=== PATIENT | female | born 1945 | race Caucasian/White ===

== ENCOUNTER 2016-06-17 04:48 | Inpatient (IN) | payer MEDICARE ==
[~2016-06-17] VITALS: Ht 157.4 cm; Wt 86.2 kg
--- NOTE | ~2016-06-17 | CON ---
[place], [place] REPORT OF CONSULTATION NAME: NAOMI WOODALL UNIT #: [id number] ROOM: 530 DOCTOR: TARIQ STRONG ED.D (SKYLER) BIRTHDATE: [birth year] DOS: 06/18/2016 HISTORY OF PRESENT ILLNESS: Naomi Woodall is a 71-year-old female referred by the hospitalist for psychological evaluation due to her confusion. At the present time, this patient is on the fifth floor at [facility]. She has three daughters and is presently a resident at [facility] in [place], [place]. Dr. Rosa is her family physician and her medical history is pertinent for CVA, dehydration, urinary tract infection, and bipolar 1 disorder. Her medications include aspirin, atorvastatin, vitamin D3, Klonopin, Depakote, Aricept, Xalatan, Tradjenta, losartan, Mobic, and Seroquel. She has no substance abuse issues at this time. This patient was awake, alert, and oriented in all three spheres. She denies any suicidal ideation or plan. She does have a long history of mental health treatment and followed for many years at the [facility] where her outsole caser was Jesenia Candelaria. She has been a resident at [facility] for quite some time. In my opinion, this patient is competent to make informed healthcare decisions and was irritated due to the fact that she had a urinary tract infection. She does have problems with several staff members at [facility] and I did notify the outsole caser at [facility] and they will evaluate that situation once she is returning. In my opinion, this patient may return to [facility] once she is medically stable and it appears that the assisted will accept her back as a resident. DIAGNOSES: 1. Bipolar 1 - mixed. 2. Delirium, not otherwise specified. Thank you very much for this consult. TARIQ STRONG ED.D CM:CONSTR:REPORT OF CONSULTATION 1623 06/19/16 0511 interface
--- NOTE | ~2016-06-17 | PR ---
[place], [place] PROGRESS NOTE NAME: RANDI WOODALL UNIT #: [id number] ROOM: 530 DOCTOR: TAE REILLY,TARIQ COOPER) BIRTHDATE: [birth year] DOS: At the present time, this patient continues to have symptoms of bipolar disorder and quite obviously needs her medications readjusted. [facility] and her behavior has been very erratic. She has been quite explosive and agitated. I suggest she get on to the Behavioral Health Unit and spoke with Dr. Agarwal and the hospitalist and she is to be transferred either today or tomorrow once she is medically stable. TARIQ STRONG ED.D CM:KIRILL [id number] TARIQ STRONG ED (BOB).D 06/20/16 0124 interface
[2016-06-17 04:48] VITALS: BP 145/84
[~2016-06-17 04:48] MED LIST: ALBUTEROL2.5 MG/0.5 INH; AMOXIL500 MG PO; ARICEPT5 M1 PO; ASPIRIN ADULT L81 M1 PO; ASPIRIN ADULT L81 M2 PO; ASPIRIN ADULT L81 MG PO; ASPIRIN CHEWABL81 M1 PO; AUGMENTIN 875875 MG PO; Anafranil25 MG PO; BACTRIM DS 8001 TA1 PO; BENZTROPINE2 MG PO; CELEBREX200 MG PO; CIPRO250 MG PO; CIPRO500 MG PO; CIPROFLOXACIN750 MG PO; CITALOPRAM20 MG PO; CLARITIN-D 5 MG1 T12 PO; CLOBETASOL0.05% T; CLOMIPRAMINE HC50 MG PO; CLONAZEPAM0.5 MG PO; CLONAZEPAM1 MG PO; COLON HERBAL C1 EACH PO; DEPAKOTE DR500 MG PO; DIFLUCAN100 MG PO; DIFLUCAN150 MG PO; DIFLUCAN200 MG PO; DIVALPROEX SOD250 MG PO; DONNATAL1 TAB PO; Depakote250 MG PO; KETOPROFEN75 MG PO; KLONOPIN0.5 MG PO; KLONOPIN1 MG PO; LAMICTAL100 MG PO; LATANOPROST2.5 ML OP; LEVAQUIN750 M1 PO; LEVOFLOXACIN500 MG PO; LOPRESSOR50 MG PO; MEDROL DOSEPAK4 MG PO; NAPROXEN SODIU220 M1 PO; NIACIN ER500 MG PO; NYSTATIN CREAM15 GM T; ONE DAILY WOME1 EACH PO; PRAVACHOL40 MG PO; RISPERDAL2 MG PO; RISPERIDONE1 MG PO; ROBITUSSIN AC 110 ML PO; SIMVASTATIN40 MG PO; STOOL SOFTENER100 M1 PO; TERBINAFINE250 MG PO; TRAMADOL HCL50 MG PO; TRAZADONE HYDR100 MG PO; TRAZODONE150 MG PO; TYLENOL EXTRA500 MG PO; VITAMIN D33000 UNIT PO; VITAMIN D400 IU PO; VITAMIN D50000 I3 PO; XALATAN 0.005%2.5 ML OU; XANAX0.5 MG PO; ZOCOR40 MG PO
[2016-06-17 05:13] LABS: BASO # 0.1 10*3/uL (0.0-0.1); BASO % 0.6 % (0.0-1.0); EOS # 0.5 10*3/uL (0.0-0.4); EOS % 5.1 % (1.0-4.0); HEMATOCRIT 40.4 % (37.0-47.0); HEMOGLOBIN 13.3 g/dl (12.0-16.0); IG # 0.2 10*3/uL (0.0-0.1); LYMPH # 2.6 10*3/uL (1.3-4.4); LYMPH % 29.4 % (27.0-41.0); MEAN CELL VOLUME 97.1 fl (81.0-99.0); MEAN CORPUSCULAR HGB CONC 32.9 g/dl (33.0-37.0); MEAN PLATELET VOLUME 9.7 fl (9.6-12.3); MONO # 1.1 10*3/uL (0.1-1.0); MONO % 12.2 % (3.0-9.0); NEUT # 4.5 10*3/uL (2.3-7.9); NEUT % 50.7 % (47.0-73.0); PLATELET COUNT AUTOMATED 263 10*3/uL (130-400); RED BLOOD COUNT 4.16 10*6/uL (4.10-5.10); RED CELL DISTRI WIDTH 13.4 % (0-14.5); WHITE BLOOD COUNT 8.9 10*3/uL (4.8-10.8)
[2016-06-17 05:23] LABS: PROTHROMBIN TIME 10.4 SECONDS (9.0-12.4)
[2016-06-17 05:23] LABS: BILIRUBIN NEGATIVE (NEGATIVE); BLOOD 2+ (NEGATIVE); CLARITY SL CLOUDY (CLEAR); COLOR YELLOW (YELLOW); GLUCOSE NEGATIVE (NEGATIVE); KETONE TRACE (NEGATIVE); LEUKO ESTERASE 3+ (NEGATIVE); NITRITE POSITIVE (NEGATIVE); PROTEIN NEGATIVE (NEGATIVE); SPECIFIC GRAVITY 1.025 (1.005-1.030); UROBILINOGEN 0.2 E.U./dl (0.2-1.0)
[2016-06-17 05:28] LABS: ALBUMIN 3.3 gm/dl (3.1-4.5); BILIRUBIN, TOTAL 0.2 mg/dl (0.2-1.0); POTASSIUM 4.7 mmol/L (3.5-5.1); TOTAL PROTEIN 7.2 gm/dL (6.4-8.2)
[2016-06-17 05:28] LABS: EPITHELIAL CELLS 25-30
[2016-06-17 05:29] LABS: BACTERIA 2+; RBC 31-40 rbc/hpf (0-2); URINE REFLEX COMMENT YES (NO); WBC 41-50 wbc/hpf (0-5)
[2016-06-17 05:31] LABS: C-REACTIVE PROTEIN 0.72 MG/DL (0-0.3); CKMB 1.5 ng/ml (0.5-3.6); MAGNESIUM 1.6 mg/dL (1.5-2.1)
[2016-06-17] MEDS ORDERED: ARICEPT10 M1 PO (05:37)
[2016-06-17] MEDS ORDERED: ATORVASTATIN CA20 M1 PO (05:39)
[2016-06-17] MEDS ORDERED: BISACODYL5 MG PO (05:40)
[2016-06-17] MEDS ORDERED: DIVALPROEX SOD500 MG PO (05:44)
[2016-06-17] MEDS ORDERED: FISH OIL EC 1,1 EAC2 PO (05:46)
[2016-06-17] MEDS ORDERED: LOSARTAN POTASS25 M1 PO (05:50)
[2016-06-17] MEDS ORDERED: MILK OF MA400 MG/5 M PO (05:51)
[2016-06-17] MEDS ORDERED: MELATONIN5 M1 SL (05:51)
[2016-06-17] MEDS ORDERED: MOBIC15 MG PO (05:52)
[2016-06-17] MEDS ORDERED: SEROQUEL XR200 MG PO (05:52)
[2016-06-17] MEDS ORDERED: TRAD5TAB1 PO (05:53)
[2016-06-17 07:10] LABS: LA>2 REFLEX 2 HR DRAW NOW
[2016-06-17 08:00] VITALS: BP 138/64
[2016-06-17] MEDS ORDERED: CRANBERRY300 MG PO (08:00)
[2016-06-17] MEDS ORDERED: DEPAKOTE250 MG PO (08:03)
[2016-06-17] MEDS ORDERED: DULCOLAX10 M1 RC (08:04)
[2016-06-17] MEDS ORDERED: MELATONIN5 M6 PO (08:09)
[2016-06-17 12:00] VITALS: BP 130/72
[2016-06-17 16:00] VITALS: BP 147/50
[2016-06-17 20:00] VITALS: BP 149/65
[2016-06-18] VITALS: BP 106/52
[2016-06-18 07:06] LABS: BASO % 0.6 % (0.0-1.0); EOS # 0.4 10*3/uL (0.0-0.4); EOS % 5.7 % (1.0-4.0); HEMATOCRIT 36.2 % (37.0-47.0); HEMOGLOBIN 11.5 g/dl (12.0-16.0); IG # 0.2 10*3/uL (0.0-0.1); LYMPH # 2.8 10*3/uL (1.3-4.4); LYMPH % 42.7 % (27.0-41.0); MEAN CELL VOLUME 98.6 fl (81.0-99.0); MEAN CORPUSCULAR HGB 31.3 pg (27.0-31.0); MEAN CORPUSCULAR HGB CONC 31.8 g/dl (33.0-37.0); MEAN PLATELET VOLUME 9.5 fl (9.6-12.3); MONO # 0.7 10*3/uL (0.1-1.0); MONO % 11.1 % (3.0-9.0); NEUT # 2.4 10*3/uL (2.3-7.9); NEUT % 37.3 % (47.0-73.0); PLATELET COUNT AUTOMATED 195 10*3/uL (130-400); RED BLOOD COUNT 3.67 10*6/uL (4.10-5.10); RED CELL DISTRI WIDTH 13.6 % (0-14.5); WHITE BLOOD COUNT 6.5 10*3/uL (4.8-10.8)
[2016-06-18 07:14] LABS: ALBUMIN 2.8 gm/dl (3.1-4.5); ALKALINE PHOSPHATASE 56 U/L (45-117); BILIRUBIN, TOTAL 0.2 mg/dl (0.2-1.0); BUN 20 mg/dl (7-24); CARBON DIOXIDE 22 mmol/L (21-32); CHLORIDE 115 mmol/L (98-107); EST GLOM FILT AFRICAN AMERICAN > 60 ml/min; GLUCOSE 109 mg/dL (65-99); POTASSIUM 4.9 mmol/L (3.5-5.1); SGOT/AST 15 IU/L (3-35); SGPT/ALT 18 U/L (12-78); SODIUM 147 mmol/L (136-145); TOTAL PROTEIN 6.4 gm/dL (6.4-8.2)
[2016-06-18 07:15] LABS: HEMOGLOBIN A1c 6.1 % (4.8-5.6)
[2016-06-18 07:24] LABS: FREE T4 0.8 ng/dl (0.76-1.46); MAGNESIUM 1.9 mg/dL (1.5-2.1); THYROID STIM HORMONE (HS) 3.54 uIU/ml (0.358-4.75)
[2016-06-18 07:25] LABS: PROTHROMBIN TIME 10.6 SECONDS (9.0-12.4)
[2016-06-18 08:00] VITALS: BP 149/71
[2016-06-18 12:00] VITALS: BP 149/82
[2016-06-18 16:00] VITALS: BP 135/92
[2016-06-18 20:00] VITALS: BP 138/74
[2016-06-19] VITALS: BP 126/62
[2016-06-19 06:23] LABS: HEMATOCRIT 34.8 % (37.0-47.0); HEMOGLOBIN 11.3 g/dl (12.0-16.0); MEAN CELL VOLUME 97.5 fl (81.0-99.0); MEAN CORPUSCULAR HGB 31.7 pg (27.0-31.0); MEAN CORPUSCULAR HGB CONC 32.5 g/dl (33.0-37.0); MEAN PLATELET VOLUME 9.2 fl (9.6-12.3); PLATELET COUNT AUTOMATED 201 10*3/uL (130-400); RED BLOOD COUNT 3.57 10*6/uL (4.10-5.10); RED CELL DISTRI WIDTH 13.3 % (0-14.5); WHITE BLOOD COUNT 6.6 10*3/uL (4.8-10.8)
[2016-06-19 07:00] LABS: BUN 17 mg/dl (7-24); CARBON DIOXIDE 23 mmol/L (21-32); CHLORIDE 114 mmol/L (98-107); EST GLOM FILT AFRICAN AMERICAN > 60 ml/min; GLUCOSE 103 mg/dL (65-99); SODIUM 147 mmol/L (136-145)
[2016-06-19 07:15] LABS: BASOPHIL # 0.1 10*3/uL (0-0.1); BASOPHILS 2 % (0-1); EOSINOPHIL # 0.3 10*3/uL (0-0.4); EOSINOPHILS 4 % (1-4); LYMPHOCYTE # 2.4 10*3/uL (1.3-4.4); METAMYELOCYTES 2 % (0-0); MONOCYTE # 0.7 10*3/uL (0.1-1.0); MYELOCYTES 1 % (0-0); NEUTROPHIL # 2.9 10*3/uL (2.3-7.9); NEUTROPHILS 44 % (47-73); PLATELET SUFFICIENCY NORMAL (NORMAL); TOTAL CELLS COUNTED 100 #CELLS
[2016-06-19 08:00] VITALS: BP 120/62
[2016-06-19 12:28] VITALS: BP 148/70
[2016-06-19 14:58] LABS: FOLIC ACID 4.04 ng/mL (>5.38)
[2016-06-19 16:00] VITALS: BP 135/97
[2016-06-19] MEDS ORDERED: NATURE'S BLEND F1 MG PO (16:21)
[2016-06-25] MEDS ORDERED: MIRTAZAPINE15 M2 PO (11:24)
[2016-06-25] MEDS ORDERED: VRAYLAR3 MG PO (11:24)
[2016-07-15] MEDS ORDERED: KEFLEX 500 MG E2 CAP PO (13:38)
== END 2016-06-19 17:00 | disposition home health service (06) | DRG 682 ==
LOC: ED 04:48 → EDHOLD 05:59 → 5E 05:59
PROVIDERS: Emergency Medicine; Hospitalist
DX: N17.0 Acute kidney failure with tubular necrosis (principal); G93.41 Metabolic encephalopathy; N39.0 Urinary tract infection, site not specified; F03.91 Unspecified dementia, unspecified severity, with behavioral disturbance; R29.6 Repeated falls; E78.5 Hyperlipidemia, unspecified; I10 Essential (primary) hypertension; F31.9 Bipolar disorder, unspecified; R41.0 Disorientation, unspecified

== ENCOUNTER 2017-05-07 18:44 | Inpatient (IN) | payer MEDICARE ==
[~2017-05-07] VITALS: Ht 166.3 cm; Wt 100.0 kg
[~2017-05-07 18:44] MED LIST changes: +ARICEPT10 M1 PO; +ATORVASTATIN CA20 M1 PO; +BISACODYL5 MG PO; +CRANBERRY300 MG PO; +DEPAKOTE250 MG PO; +DIVALPROEX SOD500 MG PO; +DULCOLAX10 M1 RC; +FISH OIL EC 1,1 EAC2 PO; +KEFLEX 500 MG E2 CAP PO; +LOSARTAN POTASS25 M1 PO; +MELATONIN5 M1 SL; +MELATONIN5 M6 PO; +MILK OF MA400 MG/5 M PO; +MIRTAZAPINE15 M2 PO; +MOBIC15 MG PO; +NATURE'S BLEND F1 MG PO; +SEROQUEL XR200 MG PO; +TRAD5TAB1 PO; +VRAYLAR3 MG PO
[2017-05-07 18:56] VITALS: BP 156/84
[2017-05-07 19:08] LABS: BASO % 0.4 % (0.0-1.0); EOS # 0.3 10*3/uL (0.0-0.4); EOS % 3.3 % (1.0-4.0); HEMATOCRIT 36.7 % (37.0-47.0); HEMOGLOBIN 12.2 g/dl (12.0-16.0); LYMPH % 30.2 % (27.0-41.0); MEAN CELL VOLUME 92.4 fl (81.0-99.0); MEAN CORPUSCULAR HGB 30.7 pg (27.0-31.0); MEAN CORPUSCULAR HGB CONC 33.2 g/dl (33.0-37.0); MONO # 0.6 10*3/uL (0.1-1.0); MONO % 5.8 % (3.0-9.0); PLATELET COUNT AUTOMATED 352 10*3/uL (130-400); RED BLOOD COUNT 3.97 10*6/uL (4.10-5.10); RED CELL DISTRI WIDTH 13.8 % (0-14.5)
--- NOTE | 2017-05-07 19:16 | NUR ---
RECIEVED CALL FROM DAUGHTER (LIVES IN [place] ) PHONE # [phone], ASKED TO BE UPSATED AT THAT NUMBER AT ANY TIME OF DAY OR NIGHT, ADVISED DAUGHTER THAT PT JUST GOT HERE AND TESTS AND LAB RESULTS HAVE NOT BE COMPLETE AT THIS TIME
[2017-05-07 19:22] LABS: ALBUMIN 3.4 gm/dl (3.1-4.5); CREATININE 1.24 mg/dL (0.55-1.02); POTASSIUM 4.8 mmol/L (3.5-5.1); TOTAL PROTEIN 7.4 gm/dL (6.4-8.2); URIC ACID 6.6 mg/dL (2.6-6.0)
[2017-05-07 21:03] LABS: BILIRUBIN NEGATIVE (NEGATIVE); BLOOD NEGATIVE (NEGATIVE); CLARITY SL CLOUDY (CLEAR); COLOR YELLOW (YELLOW); GLUCOSE NEGATIVE (NEGATIVE); KETONE NEGATIVE (NEGATIVE); LEUKO ESTERASE 2+ (NEGATIVE); NITRITE POSITIVE (NEGATIVE); UROBILINOGEN 0.2 E.U./dl (0.2-1.0)
[2017-05-07 21:05] VITALS: BP 133/57
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
[2017-05-07 21:29] LABS: BACTERIA 3+; RBC 0-2 rbc/hpf (0-2); WBC 31-40 wbc/hpf (0-5)
--- NOTE | 2017-05-07 23:10 | NUR ---
Time: 2309 A 71 year old FEMALE admitted to 5E under services of PURA MEDRANO DO Pt. arrived via stretcher from ER. Chief complaint: .UTI, MENTAL STATUS CHANGES YORDAN RAMIREZ L
--- NOTE | 2017-05-08 00:50 | NUR ---
CT SCAN CALLED AND STATED THAT THEY NEEDED PATIENT TO BE WITHOUT CONTRAST D/T EGR AND CREATNINE LEVELS, CALLED HOSPITALIST, DR. TANVI GR ANSWERED AND STATED THAT HE WOULD RELAY THE MESSAGE TO DR. Dannie MCDANIEL.
[2017-05-08 04:00] VITALS: BP 145/61
[2017-05-08 06:09] LABS: BASO # 0.1 10*3/uL (0.0-0.1); BASO % 0.6 % (0.0-1.0); EOS # 0.4 10*3/uL (0.0-0.4); EOS % 4.7 % (1.0-4.0); HEMATOCRIT 35.3 % (37.0-47.0); HEMOGLOBIN 11.5 g/dl (12.0-16.0); LYMPH # 2.6 10*3/uL (1.3-4.4); LYMPH % 32.5 % (27.0-41.0); MEAN CELL VOLUME 94.4 fl (81.0-99.0); MEAN CORPUSCULAR HGB 30.7 pg (27.0-31.0); MEAN CORPUSCULAR HGB CONC 32.6 g/dl (33.0-37.0); MEAN PLATELET VOLUME 10.2 fl (9.6-12.3); MONO # 0.5 10*3/uL (0.1-1.0); MONO % 6.7 % (3.0-9.0); NEUT # 4.3 10*3/uL (2.3-7.9); NEUT % 54.9 % (47.0-73.0); PLATELET COUNT AUTOMATED 303 10*3/uL (130-400); RED BLOOD COUNT 3.74 10*6/uL (4.10-5.10); RED CELL DISTRI WIDTH 13.9 % (0-14.5); WHITE BLOOD COUNT 7.9 10*3/uL (4.8-10.8)
[2017-05-08 06:47] LABS: BUN 19 mg/dl (7-24); CHLORIDE 112 mmol/L (98-107); POTASSIUM 4.7 mmol/L (3.5-5.1); SODIUM 141 mmol/L (136-145)
[2017-05-08 07:01] LABS: CHOLESTEROL 132 mg/dL (<200); CREATININE 0.96 mg/dL (0.55-1.02); HDL CHOLESTEROL 40 mg/dl (40-60); LDL CHOLESTEROL 60 mg/dL (9-159); PHOSPHOROUS 2.8 mg/dL (2.5-4.9); TRIGLYCERIDES 162 mg/dl (<150); VLDL CHOLESTEROL 32 mg/dL (6-40)
[2017-05-08 07:35] LABS: VITAMIN D, 25-HYDROXY 41.1 ng/mL (30-100)
[2017-05-08 08:00] VITALS: BP 146/76
[2017-05-08 14:00] VITALS: BP 131/57
[2017-05-08 16:00] VITALS: BP 182/59
[2017-05-08 20:00] VITALS: BP 150/70
--- NOTE | 2017-05-08 22:30 | NUR ---
PO RESTORIL ADMINISTERED PER PT REQUEST FOR C/O SLEEPLESSNESS. WILL MONITOR EFFECTIVENESS. CALL LIGHT LEFT IN REACH.
--- NOTE | 2017-05-08 23:11 | NUR ---
PATIENT STATES EARLIER MEDICATION BEGINNING TO TAKE EFFECT. WILL CONTINUE TO MONITOR. CALL LIGHT LEFT IN REACH.
[2017-05-09] VITALS: BP 152/53
--- NOTE | 2017-05-09 03:16 | NUR ---
PATIENT ASLEEP IN BED. RESPIRATIONS EASY, NO S/S OF DISTRESS NOTED. ON ROOM AIR. WILL MONITOR. CALL LIGHT LEFT IN REACH.
[2017-05-09 06:44] LABS: BASO # 0.1 10*3/uL (0.0-0.1); BASO % 0.6 % (0.0-1.0); EOS # 0.4 10*3/uL (0.0-0.4); EOS % 4.1 % (1.0-4.0); HEMOGLOBIN 11.1 g/dl (12.0-16.0); LYMPH # 3.3 10*3/uL (1.3-4.4); LYMPH % 37.8 % (27.0-41.0); MEAN CELL VOLUME 93.2 fl (81.0-99.0); MEAN CORPUSCULAR HGB 30.4 pg (27.0-31.0); MEAN CORPUSCULAR HGB CONC 32.6 g/dl (33.0-37.0); MONO # 0.7 10*3/uL (0.1-1.0); MONO % 8.2 % (3.0-9.0); NEUT # 4.2 10*3/uL (2.3-7.9); NEUT % 48.7 % (47.0-73.0); PLATELET COUNT AUTOMATED 301 10*3/uL (130-400); RED BLOOD COUNT 3.65 10*6/uL (4.10-5.10); RED CELL DISTRI WIDTH 13.7 % (0-14.5); WHITE BLOOD COUNT 8.7 10*3/uL (4.8-10.8)
[2017-05-09 07:07] LABS: BUN 15 mg/dl (7-24); CHLORIDE 109 mmol/L (98-107); CREATININE 0.96 mg/dL (0.55-1.02); POTASSIUM 4.4 mmol/L (3.5-5.1); SODIUM 139 mmol/L (136-145)
[2017-05-09 08:00] VITALS: BP 156/64
[2017-05-09 12:00] VITALS: BP 174/79
[2017-05-09] MEDS ORDERED: CIPRO500 MG PO (15:20)
--- NOTE | 2017-05-09 16:28 | NUR ---
Discharge instructions reviewed with patient and family. Patient receptive and verbalizes understanding. Follow-up care arranged. Written instructions given to patient/family. CHELY ROE
== END 2017-05-09 16:28 | DRG 689 ==
LOC: ED 18:44 → EDHOLD 22:19 → 5E 22:19
PROVIDERS: Emergency Medicine; Internal Medicine; Student in an Organized Health Care Education/Training Program; ADMIT Internal Medicine
DX: N39.0 Urinary tract infection, site not specified (principal); G93.41 Metabolic encephalopathy; E43 Unspecified severe protein-calorie malnutrition; E87.2 Acidosis; F31.60 Bipolar disorder, current episode mixed, unspecified; F03.90 Unspecified dementia, unspecified severity, without behavioral disturbance, psychotic disturbance, mood disturbance, and anxiety; E11.65 Type 2 diabetes mellitus with hyperglycemia; R91.1 Solitary pulmonary nodule; E78.5 Hyperlipidemia, unspecified; E53.8 Deficiency of other specified B group vitamins; H40.10X0 Unspecified open-angle glaucoma, stage unspecified; N18.3 Chronic kidney disease, stage 3 (moderate); R00.0 Tachycardia, unspecified; E83.52 Hypercalcemia; E66.01 Morbid (severe) obesity due to excess calories; E11.22 Type 2 diabetes mellitus with diabetic chronic kidney disease; I12.9 Hypertensive chronic kidney disease with stage 1 through stage 4 chronic kidney disease, or unspecified chronic kidney disease; R29.6 Repeated falls; Z87.440 Personal history of urinary (tract) infections; Z79.899 Other long term (current) drug therapy; Z79.82 Long term (current) use of aspirin; Z86.19 Personal history of other infectious and parasitic diseases; Z86.73 Personal history of transient ischemic attack (TIA), and cerebral infarction without residual deficits; Z98.51 Tubal ligation status; Z82.49 Family history of ischemic heart disease and other diseases of the circulatory system; Z80.59 Family history of malignant neoplasm of other urinary tract organ; Z80.8 Family history of malignant neoplasm of other organs or systems; Z68.36 Body mass index [BMI] 36.0-36.9, adult

== ENCOUNTER 2017-05-10 04:07 | Emergency (ER) | payer MEDICARE ==
[~2017-05-10] VITALS: Ht 165.1 cm; Wt 98.4 kg
[2017-05-10 04:12] VITALS: BP 158/82
[2017-05-10 04:39] LABS: BASO % 0.5 % (0.0-1.0); EOS # 0.3 10*3/uL (0.0-0.4); EOS % 4.1 % (1.0-4.0); HEMATOCRIT 34.1 % (37.0-47.0); HEMOGLOBIN 11.2 g/dl (12.0-16.0); LYMPH # 2.6 10*3/uL (1.3-4.4); LYMPH % 32.9 % (27.0-41.0); MEAN CELL VOLUME 92.9 fl (81.0-99.0); MEAN CORPUSCULAR HGB 30.5 pg (27.0-31.0); MEAN CORPUSCULAR HGB CONC 32.8 g/dl (33.0-37.0); MEAN PLATELET VOLUME 9.7 fl (9.6-12.3); MONO # 0.7 10*3/uL (0.1-1.0); MONO % 8.3 % (3.0-9.0); NEUT # 4.3 10*3/uL (2.3-7.9); NEUT % 53.5 % (47.0-73.0); PLATELET COUNT AUTOMATED 301 10*3/uL (130-400); RED BLOOD COUNT 3.67 10*6/uL (4.10-5.10); RED CELL DISTRI WIDTH 13.8 % (0-14.5)
[2017-05-10 04:55] LABS: ALBUMIN 3.1 gm/dl (3.1-4.5); ALKALINE PHOSPHATASE 83 U/L (45-117); BUN 15 mg/dl (7-24); CHLORIDE 108 mmol/L (98-107); POTASSIUM 4.2 mmol/L (3.5-5.1); SGOT/AST 37 IU/L (3-35); SGPT/ALT 38 U/L (12-78); SODIUM 140 mmol/L (136-145)
[2017-05-10 04:58] LABS: ACETAMINOPHEN (TYLENOL) < 2.0 ug/ml (10-30); ETHYL ALCOHOL < 3.0 mg/dl (<3); TROPONIN I < 0.015 ng/ml (<0.045)
[2017-05-10 05:44] LABS: BILIRUBIN NEGATIVE (NEGATIVE); BLOOD NEGATIVE (NEGATIVE); CLARITY CLEAR (CLEAR); COLOR YELLOW (YELLOW); GLUCOSE 1+ (NEGATIVE); KETONE NEGATIVE (NEGATIVE); LEUKO ESTERASE NEGATIVE (NEGATIVE); NITRITE NEGATIVE (NEGATIVE); UROBILINOGEN 0.2 E.U./dl (0.2-1.0)
[2017-05-10 05:50] LABS: EPITHELIAL CELLS 0-5
[2017-05-10 05:52] LABS: URINE AMPHETAMINES < 1000 (1000ng/ml); URINE BARBITURATES < 200 (200ng/ml); URINE BENZODIAZEPINES < 200 (200ng/ml); URINE CANNABINOIDS (THC) < 50 (50ng/ml); URINE COCAINE < 300 (300ng/ml); URINE METHADONE < 300 (300ng/ml); URINE OPIATES < 300 (300ng/ml); URINE PHENCYCLIDINE < 25 (25ng/ml)
== END 2017-05-10 07:56 | disposition home or self-care (01) ==
LOC: ED 04:07
PROVIDERS: Student in an Organized Health Care Education/Training Program
DX: F03.90 Unspecified dementia, unspecified severity, without behavioral disturbance, psychotic disturbance, mood disturbance, and anxiety (principal); I12.9 Hypertensive chronic kidney disease with stage 1 through stage 4 chronic kidney disease, or unspecified chronic kidney disease; E11.22 Type 2 diabetes mellitus with diabetic chronic kidney disease; N18.3 Chronic kidney disease, stage 3 (moderate); E78.5 Hyperlipidemia, unspecified; E11.65 Type 2 diabetes mellitus with hyperglycemia; E66.01 Morbid (severe) obesity due to excess calories; Z79.899 Other long term (current) drug therapy; Z86.73 Personal history of transient ischemic attack (TIA), and cerebral infarction without residual deficits; Z79.82 Long term (current) use of aspirin; Z98.51 Tubal ligation status

== ENCOUNTER 2018-03-10 20:48 | Inpatient (IN) | payer MEDICARE ==
[~2018-03-10] VITALS: Ht 165.1 cm; Wt 95.1 kg
--- NOTE | ~2018-03-10 | EKG ---
[place], [place] ELECTROCARDIOGRAM REPORT NAME: RANDI WOODALL UNIT #: [id number] ROOM: 510 DOCTOR: KEN DRAFT REPORT BIRTHDATE: [birth year] [facility] Test Date: 2018-03-10 Test Time: 21:07:19 Pat Name: RANDI WOODALL Department: Room: 510 Gender: F Systems Developer: Penny Huerta : 1945 Requested By: SNEHA SANCHEZ Order Number: [id number] Reading MD: Roque Carver MD Measurements Intervals Roberts Rate: 92 P: 53 HI: 187 QRS: 41 QRSD: 89 T: 62 QT: 330 QTc: 409 Interpretive Statements Sinus rhythm Probable left atrial enlargement Electronically Signed On 03-11-2018 12:10:42 PDT by Roque Carver MD CM:EKGRPT:ELECTROCARDIOGRAM REPORT 06 1210 SNEHA ROMERO DRAFT REPORT SNEHA SANCHEZ DO
[2018-03-10 20:54] VITALS: BP 145/90
[2018-03-10 21:10] LABS: BASO % 0.2 % (0.0-1.0); EOS # 0.3 10*3/uL (0.0-0.4); EOS % 3.2 % (1.0-4.0); HEMATOCRIT 36.2 % (37.0-47.0); HEMOGLOBIN 11.5 g/dl (12.0-16.0); LYMPH # 2.7 10*3/uL (1.3-4.4); LYMPH % 30.8 % (27.0-41.0); MEAN CELL VOLUME 95.5 fl (81.0-99.0); MEAN CORPUSCULAR HGB 30.3 pg (27.0-31.0); MEAN CORPUSCULAR HGB CONC 31.8 g/dl (33.0-37.0); MEAN PLATELET VOLUME 9.7 fl (9.6-12.3); MONO # 0.6 10*3/uL (0.1-1.0); MONO % 7.3 % (3.0-9.0); NEUT # 5.1 10*3/uL (2.3-7.9); NEUT % 58.2 % (47.0-73.0); PLATELET COUNT AUTOMATED 379 10*3/uL (130-400); RED BLOOD COUNT 3.79 10*6/uL (4.10-5.10); RED CELL DISTRI WIDTH 13.7 % (0-14.5); WHITE BLOOD COUNT 8.7 10*3/uL (4.8-10.8)
[2018-03-10 21:26] LABS: ALBUMIN 3.4 gm/dl (3.1-4.5); ALKALINE PHOSPHATASE 100 U/L (45-117); BUN 18 mg/dl (7-24); CHLORIDE 110 mmol/L (98-107); CREATININE 0.98 mg/dL (0.55-1.02); POTASSIUM 4.5 mmol/L (3.5-5.1); SGOT/AST 42 IU/L (3-35); SGPT/ALT 39 U/L (12-78); SODIUM 142 mmol/L (136-145); TOTAL PROTEIN 7.6 gm/dL (6.4-8.2)
[2018-03-10 21:27] LABS: ACETAMINOPHEN (TYLENOL) < 2.0 ug/ml (10-30); ETHYL ALCOHOL < 3.0 mg/dl (<3); TROPONIN I < 0.015 ng/ml (<0.045)
[2018-03-10 22:43] LABS: BILIRUBIN NEGATIVE (NEGATIVE); BLOOD NEGATIVE (NEGATIVE); CLARITY SL CLOUDY (CLEAR); COLOR YELLOW (YELLOW); GLUCOSE NEGATIVE (NEGATIVE); KETONE NEGATIVE (NEGATIVE); LEUKO ESTERASE 2+ (NEGATIVE); NITRITE POSITIVE (NEGATIVE); UROBILINOGEN 0.2 E.U./dl (0.2-1.0)
[2018-03-10 22:54] LABS: URINE AMPHETAMINES < 1000 (1000ng/ml); URINE BARBITURATES < 200 (200ng/ml); URINE BENZODIAZEPINES < 200 (200ng/ml); URINE CANNABINOIDS (THC) < 50 (50ng/ml); URINE COCAINE < 300 (300ng/ml); URINE METHADONE < 300 (300ng/ml); URINE OPIATES < 300 (300ng/ml)
[2018-03-10 23:01] LABS: URINE PHENCYCLIDINE < 25 (25ng/ml)
[2018-03-10 23:35] LABS: BACTERIA 3+; EPITHELIAL CELLS 15-20
[2018-03-10 23:36] LABS: RBC 0-2 rbc/hpf (0-2); WBC 21-30 wbc/hpf (0-5)
[2018-03-11 01:35] VITALS: BP 143/46
[2018-03-11] MEDS ORDERED: KLONOPIN0.5 MG PO (02:16)
[2018-03-11] MEDS ORDERED: TYLENOL325 M1 PO (02:17)
[2018-03-11] MEDS ORDERED: VRAYLAR3 MG PO (02:18)
[2018-03-11] MEDS ORDERED: METFORMIN ER500 MG PO (02:19)
[2018-03-11 03:42] LABS: BASO % 0.4 % (0.0-1.0); EOS # 0.2 10*3/uL (0.0-0.4); HEMATOCRIT 34.8 % (37.0-47.0); HEMOGLOBIN 10.9 g/dl (12.0-16.0); LYMPH % 26.2 % (27.0-41.0); MEAN CELL VOLUME 96.9 fl (81.0-99.0); MEAN CORPUSCULAR HGB 30.4 pg (27.0-31.0); MEAN CORPUSCULAR HGB CONC 31.3 g/dl (33.0-37.0); MEAN PLATELET VOLUME 10.2 fl (9.6-12.3); MONO # 0.6 10*3/uL (0.1-1.0); MONO % 7.7 % (3.0-9.0); NEUT # 4.7 10*3/uL (2.3-7.9); NEUT % 62.3 % (47.0-73.0); PLATELET COUNT AUTOMATED 342 10*3/uL (130-400); RED BLOOD COUNT 3.59 10*6/uL (4.10-5.10); RED CELL DISTRI WIDTH 13.6 % (0-14.5); WHITE BLOOD COUNT 7.6 10*3/uL (4.8-10.8)
[2018-03-11 03:58] LABS: CREATININE 1.09 mg/dL (0.55-1.02); POTASSIUM 4.6 mmol/L (3.5-5.1)
[2018-03-11 04:03] LABS: ACT PARTIAL THROMBO TIME 22.5 SECONDS (20.8-31.5); FREE T4 1.11 ng/dl (0.76-1.46); PHOSPHOROUS 2.4 mg/dL (2.5-4.9)
[2018-03-11 04:09] LABS: THYROID STIM HORMONE (HS) 1.61 uIU/ml (0.358-4.75)
[2018-03-11 07:05] LABS: VITAMIN D, 25-HYDROXY 35.9 ng/mL (30-100)
[2018-03-11 08:00] VITALS: BP 152/62
[2018-03-11 12:00] VITALS: BP 136/60
[2018-03-11 16:00] VITALS: BP 144/54
[2018-03-11 20:00] VITALS: BP 152/74
[2018-03-12] VITALS: BP 129/56
[2018-03-12 08:00] VITALS: BP 132/56
[2018-03-12] MEDS ORDERED: CIPRO500 MG PO (13:53)
== END 2018-03-12 14:26 | disposition home health service (06) | DRG 689 ==
LOC: ED 20:48 → 5E 03-11 01:09 → EDHOLD 03-11 01:09 → 5E 03-11 01:37
PROVIDERS: Emergency Medicine; Internal Medicine
DX: N30.00 Acute cystitis without hematuria (principal); G93.41 Metabolic encephalopathy; E87.2 Acidosis; R45.851 Suicidal ideations; Z79.899 Other long term (current) drug therapy; F03.90 Unspecified dementia, unspecified severity, without behavioral disturbance, psychotic disturbance, mood disturbance, and anxiety; N18.3 Chronic kidney disease, stage 3 (moderate); E66.01 Morbid (severe) obesity due to excess calories; F31.9 Bipolar disorder, unspecified; E78.5 Hyperlipidemia, unspecified; I12.9 Hypertensive chronic kidney disease with stage 1 through stage 4 chronic kidney disease, or unspecified chronic kidney disease; E11.22 Type 2 diabetes mellitus with diabetic chronic kidney disease; D64.9 Anemia, unspecified; E87.8 Other disorders of electrolyte and fluid balance, not elsewhere classified; R91.1 Solitary pulmonary nodule; E11.65 Type 2 diabetes mellitus with hyperglycemia; R74.0 Nonspecific elevation of levels of transaminase and lactic acid dehydrogenase [LDH]; R29.6 Repeated falls; E53.8 Deficiency of other specified B group vitamins; M54.9 Dorsalgia, unspecified; G89.29 Other chronic pain; K75.4 Autoimmune hepatitis; H40.9 Unspecified glaucoma; I67.9 Cerebrovascular disease, unspecified; E55.9 Vitamin D deficiency, unspecified; Z86.73 Personal history of transient ischemic attack (TIA), and cerebral infarction without residual deficits; Z87.440 Personal history of urinary (tract) infections; Z98.51 Tubal ligation status; Z82.49 Family history of ischemic heart disease and other diseases of the circulatory system; Z80.59 Family history of malignant neoplasm of other urinary tract organ; Z79.84 Long term (current) use of oral hypoglycemic drugs; Z68.32 Body mass index [BMI] 32.0-32.9, adult

== ENCOUNTER 2018-03-12 14:21 | Inpatient (IN) | payer MEDICARE ==
[~2018-03-12] VITALS: Ht 167.6 cm; Wt 90.7 kg
--- NOTE | ~2018-03-12 | PR ---
[place], [place] PROGRESS NOTE NAME: RANDI WOODALL UNIT #: [id number] ROOM: 314 DOCTOR: TESSA MCCAIN MD BIRTHDATE: [birth year] DOS: 03/14/2018 PSYCHIATRIC PROGRESS NOTE SUBJECTIVE: The patient seen and spoke with the staff. Per staff, the patient is taking her medications. No side effects, doing better, but still isolated and depressed. The patient was pleasant, cooperative. She was in the day area, sitting on her own. She said that she is doing okay. She seems to be a little bit guarded, not as forthcoming. She denied any side effect from the medication. She reports good sleep and appetite. MENTAL STATUS EXAMINATION: The patient was pleasant and cooperative. Described her mood as "okay." Affect was flat. Thought process goal directed. No flight of idea, loose of association. She denies suicidal ideation, intent or plan. She also denied homicidal ideation, intent or plan. PLAN: 1. Continue current medications and care. 2. Continue redirection. 3. Supportive care. TESSA MCCAIN MD CM:PNTRANS [phone] TESSA MCCAIN MD 03/15/18 1444 interface
--- NOTE | ~2018-03-12 | PR ---
[place], [place] PROGRESS NOTE NAME: RANDI WOODALL UNIT #: [id number] ROOM: 314 DOCTOR: TESSA MCCAIN MD BIRTHDATE: [birth year] DOS: 03/15/2018 PSYCHIATRIC PROGRESS NOTE SUBJECTIVE: The patient seen and spoke with the nursing staff. Per staff, the patient is doing well. Medication compliant. No behavioral problems or issues. Slept well last night. The patient was pleasant and cooperative. She was in the day area. She said that she is feeling "a lot better." She is happy about the medication. She denied any side effect from the medication also. She reports good sleep and appetite. MENTAL STATUS EXAMINATION: Pleasant and cooperative. Described her mood as "good." Affect was bright. Thought process goal directed. No flight of ideas, loosening of association. She denied auditory or visual hallucination. No delusion or paranoia noted. She denied suicidal ideation, intent or plan. She also denied any homicidal ideation, intent or plan. PLAN: 1. Continue current medications and care. 2. Continue redirection. 3. Supportive care. TESSA MCCAIN MD CM:PNTRANS 32 [phone] TESSA MCCAIN MD 03/16/18132 interface
--- NOTE | ~2018-03-12 | DS ---
[place], [place] DISCHARGE SUMMARY [id number] UNIT #: [id number] ROOM: 314 DOCTOR: ANA HEADLEY MD BIRTHDATE: [birth year] DOS: 03/18/2018 CHIEF COMPLAINT: "I am feeling good today." HISTORY OF PRESENT ILLNESS: This is a 72-year-old white female who resides at [facility] in [place], [place]. The patient had initially presented to the hospital after she was found having hid a bottle of trazodone underneath her pillow. She had reported to the staff there that she was planning to take an overdose of the trazodone in an effort to kill herself. The trazodone was actually her boyfriend's medication that was brought in for her. The patient had reported to the staff there that she had been increasingly depressed for several weeks and was voicing neurovegetative symptoms that included poor sleep and appetite, anergia, anhedonia, hopeless, helpless feelings, crying spells, and inability to cope. The patient was initially admitted medically, but once stabilized, was sent to the [facility] for further psychiatric stabilization. SUMMARY OF THE HOSPITAL COURSE: The patient was admitted to the hospital where she was started immediately on Remeron 15 mg at bedtime in order to rapidly improve sleep and appetite. This did impact positively on these target symptoms. The patient was also switched from Namzaric to Namenda 10 mg twice daily and Exelon patch 4.6 mg a day, which was gradually increased to its maximum dose during her stay at 9.5 mg a day. Additionally, towards the latter part of her stay, the Remeron was increased to its maximum dose during her stay at 22.5 mg daily. This dose was increased slightly to attempt to give her slightly more energy and nonetheless continued to improve sleep. This dose did seem to be adequate in meeting those needs. She tolerated the medication regimen well and voiced a willingness and a readiness to return back to [facility]. She no longer voiced any suicidal thoughts and was voicing positive plans for the future. The patient was then discharged back to [facility] on 03/18/2018. MENTAL STATUS AT DISCHARGE: She is alert and oriented with some time gaps. Mood for the most part is euthymic. Affect is much more appropriate. There is no tenzin, hypomania or gross psychotic symptoms noted. She does have gaps in short term memory, but this had improved during her stay. FINAL DIAGNOSES UPON DISCHARGE: Major depression, recurrent, severe and Alzheimer's dementia. DISPOSITION: The patient will return to [facility]. I will be the treating psychiatrist upon her return there. All of her prescriptions have been printed and will be sent with her. There were no acute medical issues currently involved. She was discharged then in stable and good condition back to [facility]. [place], [place] DISCHARGE SUMMARY NAME: RANDI WOODALL UNIT #: [id number] ROOM: [facility] DOCTOR: ANA HEADLEY MD BIRTHDATE: [birth year] ANA HEADLEY MD CM:DISCHARG [id number] ANA HEADLEY MD 03/18/18 1354 interface
--- NOTE | ~2018-03-12 | PR ---
[place], [place] PROGRESS NOTE NAME: RANDI WOODALL UNIT #: [id number] ROOM: 314 DOCTOR: ANA HEADLEY MD BIRTHDATE: [birth year] DOS: 03/16/2018 CHIEF COMPLAINT: "Will I be going home soon." SUMMARY OF THE VISIT: The patient was interviewed in the dining area where she engaged readily in conversation. She appears very depressed and is still flat, blunted, and constricted. She was fixated on being able to go back to [facility]. Nurses report they see her as still continuing to be depressed and is very flat and requires a lot of engagement. MENTAL STATUS: She is alert and oriented with time gaps. Mood does seem to be trending towards euthymia, but she is still depressed. There is no tenzin or hypomania. There are no gross psychotic symptoms. Short term memory has gaps. PLAN: I will increase Exelon patch from 4.6 to 9.5 mg a day. Maintain Namenda, increase Remeron from 15 to 22.5 mg a day, support and monitor, engage in individual and jacobs milieu activity, returning then to the least restrictive environment when psychiatrically stable. ANA HEADLEY MD CM:PNTRANS [id number] [phone] ANA HEADLEY MD 03/16/18 1129 interface
--- NOTE | ~2018-03-12 | PR ---
[place], [place] PROGRESS NOTE NAME: RANDI WOODALL UNIT #: [id number] ROOM: 314 DOCTOR: ANA HEADLEY MD BIRTHDATE: [birth year] DOS: 03/17/2018 INTERVAL NOTE CHIEF COMPLAINT: "I feel a little better. I'm ready to go back to [facility]." SUMMARY OF THE VISIT: The patient was interviewed as she sat in the dining area. She had already completed her breakfast. She engaged readily in conversation. She did seem slightly brighter, more conversant and processed conversations better than she did yesterday. She reports no side effects from the medications themselves and is anxious to be able to return back to [facility]. MENTAL STATUS: She is alert and oriented with some time gaps. Mood does seem to be strongly trending towards euthymia. Affect is more appropriate. There is no tenzin, hypomania or gross psychotic symptoms. Short-term memory has mild gaps, otherwise she is intact. PLAN: I will go ahead and increase Namenda from 5 mg daily to 5 mg twice daily augmenting the effectiveness of the Exelon. Maintain Remeron at its current dose. Engage in individual and jacobs milieu activity, returning to the least restrictive environment when psychiatrically stable. ANA HEADLEY MD CM:PNTRANS [phone] ANA HEADLEY MD 03/18/18 0129 interface
[~2018-03-12 14:21] MED LIST changes: +METFORMIN ER500 MG PO; +TYLENOL325 M1 PO
[2018-03-12 14:43] VITALS: BP 132/47
[2018-03-12 15:00] VITALS: BP 132/47
[2018-03-12 20:00] VITALS: BP 130/66
[2018-03-13 07:15] LABS: BASO % 0.5 % (0.0-1.0); EOS # 0.3 10*3/uL (0.0-0.4); EOS % 3.5 % (1.0-4.0); HEMATOCRIT 36.9 % (37.0-47.0); HEMOGLOBIN 11.9 g/dl (12.0-16.0); LYMPH # 2.2 10*3/uL (1.3-4.4); LYMPH % 25.3 % (27.0-41.0); MEAN CELL VOLUME 94.9 fl (81.0-99.0); MEAN CORPUSCULAR HGB 30.6 pg (27.0-31.0); MEAN CORPUSCULAR HGB CONC 32.2 g/dl (33.0-37.0); MEAN PLATELET VOLUME 9.5 fl (9.6-12.3); MONO # 0.6 10*3/uL (0.1-1.0); NEUT # 5.5 10*3/uL (2.3-7.9); NEUT % 63.4 % (47.0-73.0); PLATELET COUNT AUTOMATED 397 10*3/uL (130-400); RED BLOOD COUNT 3.89 10*6/uL (4.10-5.10); RED CELL DISTRI WIDTH 13.7 % (0-14.5); WHITE BLOOD COUNT 8.6 10*3/uL (4.8-10.8)
[2018-03-13 07:18] VITALS: BP 123/64
[2018-03-13 07:48] LABS: ALBUMIN 3.5 gm/dl (3.1-4.5); ALKALINE PHOSPHATASE 109 U/L (45-117); BUN 15 mg/dl (7-24); CHLORIDE 108 mmol/L (98-107); CHOLESTEROL 142 mg/dL (<200); CREATININE 1.05 mg/dL (0.55-1.02); HDL CHOLESTEROL 36 mg/dl (40-60); LDL CHOLESTEROL 60 mg/dL (9-159); POTASSIUM 4.3 mmol/L (3.5-5.1); SGOT/AST 44 IU/L (3-35); SGPT/ALT 42 U/L (12-78); SODIUM 140 mmol/L (136-145); TOTAL PROTEIN 7.4 gm/dL (6.4-8.2); TRIGLYCERIDES 232 mg/dl (<150); VLDL CHOLESTEROL 46 mg/dL (6-40)
[2018-03-13 08:09] LABS: VITAMIN D, 25-HYDROXY 43.6 ng/mL (30-100)
[2018-03-13 19:52] VITALS: BP 138/53
[2018-03-14 07:27] LABS: BUN 16 mg/dl (7-24); CHLORIDE 108 mmol/L (98-107); CREATININE 1.01 mg/dL (0.55-1.02); POTASSIUM 4.4 mmol/L (3.5-5.1); SODIUM 141 mmol/L (136-145)
[2018-03-14 07:55] VITALS: BP 136/54
[2018-03-14 19:40] VITALS: BP 135/73
[2018-03-15 06:50] LABS: BASO # 0.1 10*3/uL (0.0-0.1); BASO % 0.6 % (0.0-1.0); EOS # 0.4 10*3/uL (0.0-0.4); EOS % 4.1 % (1.0-4.0); HEMATOCRIT 36.1 % (37.0-47.0); HEMOGLOBIN 11.5 g/dl (12.0-16.0); LYMPH # 2.4 10*3/uL (1.3-4.4); LYMPH % 28.7 % (27.0-41.0); MEAN CELL VOLUME 96.3 fl (81.0-99.0); MEAN CORPUSCULAR HGB 30.7 pg (27.0-31.0); MEAN CORPUSCULAR HGB CONC 31.9 g/dl (33.0-37.0); MEAN PLATELET VOLUME 9.9 fl (9.6-12.3); MONO # 0.6 10*3/uL (0.1-1.0); MONO % 6.6 % (3.0-9.0); NEUT # 5.1 10*3/uL (2.3-7.9); NEUT % 59.6 % (47.0-73.0); PLATELET COUNT AUTOMATED 403 10*3/uL (130-400); RED BLOOD COUNT 3.75 10*6/uL (4.10-5.10); RED CELL DISTRI WIDTH 13.7 % (0-14.5); WHITE BLOOD COUNT 8.5 10*3/uL (4.8-10.8)
[2018-03-15 07:16] LABS: ALBUMIN 3.3 gm/dl (3.1-4.5); CREATININE 1.1 mg/dL (0.55-1.02); POTASSIUM 4.6 mmol/L (3.5-5.1); TOTAL PROTEIN 7.4 gm/dL (6.4-8.2)
[2018-03-15 07:51] VITALS: BP 144/62
[2018-03-15 19:39] VITALS: BP 141/62
[2018-03-16 07:15] VITALS: BP 128/61
[2018-03-16 19:54] VITALS: BP 134/67
[2018-03-17 07:21] VITALS: BP 139/63
[2018-03-17 19:47] VITALS: BP 142/71
[2018-03-18 07:57] VITALS: BP 141/70
[2018-03-18] MEDS ORDERED: VITAMIN D-32000 UNIT PO (09:31)
[2018-03-18] MEDS ORDERED: NATURE'S BLEND F1 MG PO (09:31)
[2018-03-18] MEDS ORDERED: VRAYLAR3 MG PO (09:31)
[2018-03-18] MEDS ORDERED: RIVASTIGMINE1 EAC1 T (09:31)
[2018-03-18] MEDS ORDERED: NAMENDA-5 PO (09:31)
[2018-03-18] MEDS ORDERED: MIRTAZAPINE15 M2 PO (09:31)
== END 2018-03-18 13:37 | DRG 56 ==
LOC: 3N 14:21
PROVIDERS: Family Medicine; Internal Medicine; Psychiatry & Neurology Psychiatry
DX: G30.9 Alzheimer's disease, unspecified (principal); G93.41 Metabolic encephalopathy; F33.2 Major depressive disorder, recurrent severe without psychotic features; N30.00 Acute cystitis without hematuria; R45.851 Suicidal ideations; K75.4 Autoimmune hepatitis; F02.80 Dementia in other diseases classified elsewhere, unspecified severity, without behavioral disturbance, psychotic disturbance, mood disturbance, and anxiety; H40.9 Unspecified glaucoma; E78.5 Hyperlipidemia, unspecified; I10 Essential (primary) hypertension; G89.29 Other chronic pain; M54.5 Low back pain; R91.1 Solitary pulmonary nodule; I67.9 Cerebrovascular disease, unspecified; E11.65 Type 2 diabetes mellitus with hyperglycemia; D64.9 Anemia, unspecified; E66.9 Obesity, unspecified; E53.8 Deficiency of other specified B group vitamins; B37.2 Candidiasis of skin and nail; R29.6 Repeated falls; R74.0 Nonspecific elevation of levels of transaminase and lactic acid dehydrogenase [LDH]; E11.9 Type 2 diabetes mellitus without complications; E55.9 Vitamin D deficiency, unspecified; Z87.440 Personal history of urinary (tract) infections; Z86.73 Personal history of transient ischemic attack (TIA), and cerebral infarction without residual deficits; Z98.51 Tubal ligation status; Z82.49 Family history of ischemic heart disease and other diseases of the circulatory system; Z80.59 Family history of malignant neoplasm of other urinary tract organ; Z79.82 Long term (current) use of aspirin; Z79.4 Long term (current) use of insulin; Z68.32 Body mass index [BMI] 32.0-32.9, adult

== ENCOUNTER → 2020-03-14 | Outpatient (CLI) | payer MEDICARE ==
[~2020-03-14] MED LIST changes: +NAMENDA-5 PO; +RIVASTIGMINE1 EAC1 T; +VITAMIN D-32000 UNIT PO
[2020-03-14 16:59] LABS: BASO % 0.4 % (0.0-1.0); EOS # 0.3 10*3/uL (0.0-0.4); EOS % 2.9 % (1.0-4.0); HEMATOCRIT 42.9 % (37.0-47.0); LYMPH # 2.5 10*3/uL (1.3-4.4); LYMPH % 26.5 % (27.0-41.0); MEAN CELL VOLUME 94.9 fl (81.0-99.0); MEAN CORPUSCULAR HGB 30.8 pg (27.0-31.0); MEAN CORPUSCULAR HGB CONC 32.4 g/dl (33.0-37.0); MONO # 0.6 10*3/uL (0.1-1.0); MONO % 6.3 % (3.0-9.0); NEUT # 6.1 10*3/uL (2.3-7.9); NEUT % 63.5 % (47.0-73.0); PLATELET COUNT AUTOMATED 416 10*3/uL (130-400); RED BLOOD COUNT 4.52 10*6/uL (4.10-5.10); WHITE BLOOD COUNT 9.6 10*3/uL (4.8-10.8)
[2020-03-14 17:31] LABS: ALBUMIN 3.5 gm/dl (3.1-4.5); CREATININE 1.15 mg/dL (0.55-1.02); FREE T4 1.21 ng/dl (0.76-1.46); POTASSIUM 4.2 mmol/L (3.5-5.1); TOTAL PROTEIN 7.9 gm/dL (6.4-8.2)
[2020-03-14 17:36] LABS: THYROID STIM HORMONE (HS) 1.33 uIU/ml (0.358-4.75)
[2020-03-14 17:43] LABS: VITAMIN D, 25-HYDROXY 21.9 ng/mL (30-100)
== END | disposition home or self-care (01) ==
LOC: LAB 16:25
PROVIDERS: ATTEND Internal Medicine
DX: Z00.00 Encounter for general adult medical examination without abnormal findings (principal); E55.9 Vitamin D deficiency, unspecified; E78.2 Mixed hyperlipidemia; I10 Essential (primary) hypertension

== ENCOUNTER → 2020-10-21 | Outpatient (CLI) | payer MEDICARE ==
[2020-10-21 10:20] LABS: ALBUMIN 3.7 gm/dl (3.1-4.5); CREATININE 1.28 mg/dL (0.55-1.02); POTASSIUM 4.3 mmol/L (3.5-5.1); TOTAL PROTEIN 8.3 gm/dL (6.4-8.2)
== END | disposition home or self-care (01) ==
LOC: LAB 08:39
PROVIDERS: ATTEND Internal Medicine
DX: E11.9 Type 2 diabetes mellitus without complications (principal)

== ENCOUNTER 2021-09-20 18:25 | Emergency (ER) | payer MEDICARE ==
[~2021-09-20] VITALS: Wt 93.4 kg
[2021-09-20] MEDS ORDERED: TRAZODONE150 MG PO (18:54)
[2021-09-20] MEDS ORDERED: DONEPEZIL HCL10 MG PO (18:54)
[2021-09-20 19:42] LABS: BASO % 0.3 % (0.0-1.0); EOS # 0.2 10*3/uL (0.0-0.4); EOS % 2.1 % (1.0-4.0); LYMPH # 1.9 10*3/uL (1.3-4.4); LYMPH % 18.3 % (27.0-41.0); MEAN CELL VOLUME 92.4 fl (81.0-99.0); MEAN CORPUSCULAR HGB 30.1 pg (27.0-31.0); MEAN CORPUSCULAR HGB CONC 32.6 g/dl (33.0-37.0); MEAN PLATELET VOLUME 9.4 fl (9.6-12.3); MONO # 0.6 10*3/uL (0.1-1.0); MONO % 5.4 % (3.0-9.0); NEUT # 7.7 10*3/uL (2.3-7.9); NEUT % 73.5 % (47.0-73.0); PLATELET COUNT AUTOMATED 381 10*3/uL (130-400); RED BLOOD COUNT 4.22 10*6/uL (4.10-5.10); RED CELL DISTRI WIDTH 13.1 % (0-14.5); WHITE BLOOD COUNT 10.5 10*3/uL (4.8-10.8)
[2021-09-20 19:58] LABS: ACT PARTIAL THROMBO TIME 23.8 SECONDS (20.0-32.1); CREATININE 1.11 mg/dL (0.55-1.02); POTASSIUM 4.8 mmol/L (3.5-5.1); TOTAL PROTEIN 7.4 gm/dL (6.4-8.2)
[2021-09-20 21:47] LABS: BILIRUBIN Negative (Negative); BLOOD Negative (Negative); CLARITY Cloudy (Clear); COLOR Yellow (Yellow); GLUCOSE Negative (Negative); KETONE Negative (Negative); LEUKO ESTERASE 1+ (Negative); NITRITE Positive (Negative); SPECIFIC GRAVITY 1.015 (1.001-1.030)
[2021-09-20 22:07] LABS: BACTERIA 4+
[2021-09-20 22:42] VITALS: BP 147/47
[2021-09-20] MEDS ORDERED: MACROBID100 M1 PO (23:56)
== END 2021-09-21 01:02 ==
LOC: ED 18:25
PROVIDERS: Internal Medicine
DX: S09.90XA Unspecified injury of head, initial encounter (principal); N39.0 Urinary tract infection, site not specified; I10 Essential (primary) hypertension; E66.9 Obesity, unspecified; Z98.51 Tubal ligation status; Z98.890 Other specified postprocedural states; Z79.899 Other long term (current) drug therapy; Z79.82 Long term (current) use of aspirin; W07.XXXA Fall from chair, initial encounter; Y93.89 Activity, other specified; Y92.89 Other specified places as the place of occurrence of the external cause; Y99.8 Other external cause status

== ENCOUNTER 2022-11-26 21:20 | Emergency (ER) | payer OTHER ==
[~2022-11-26] VITALS: Ht 170.1 cm; Wt 97.1 kg
[~2022-11-26 21:20] MED LIST changes: +DONEPEZIL HCL10 MG PO; +MACROBID100 M1 PO
[2022-11-26 21:21] VITALS: BP 151/60
[2022-11-26 22:14] LABS: BASO % 0.4 % (0.0-1.0); EOS # 0.4 10*3/uL (0.0-0.4); HEMATOCRIT 34.5 % (37.0-47.0); LYMPH # 2.4 10*3/uL (1.3-4.4); LYMPH % 33.9 % (27.0-41.0); MEAN CELL VOLUME 93.8 fl (81.0-99.0); MEAN PLATELET VOLUME 9.6 fl (9.6-12.3); MONO # 0.5 10*3/uL (0.1-1.0); NEUT # 3.7 10*3/uL (2.3-7.9); NEUT % 52.3 % (47.0-73.0); PLATELET COUNT AUTOMATED 304 10*3/uL (130-400); RED BLOOD COUNT 3.68 10*6/uL (4.10-5.10); RED CELL DISTRI WIDTH 15.3 % (0-14.5); WHITE BLOOD COUNT 7.1 10*3/uL (4.8-10.8)
[2022-11-26 22:32] LABS: INTERNATIONAL NORM RATIO 1.1 (2.0-3.5)
== END 2022-11-26 23:34 ==
LOC: ED 21:20
PROVIDERS: Emergency Medicine
DX: R04.0 Epistaxis (principal); R51.9 Headache, unspecified; E87.8 Other disorders of electrolyte and fluid balance, not elsewhere classified; E83.39 Other disorders of phosphorus metabolism; E11.65 Type 2 diabetes mellitus with hyperglycemia; D64.9 Anemia, unspecified; F03.90 Unspecified dementia, unspecified severity, without behavioral disturbance, psychotic disturbance, mood disturbance, and anxiety; I10 Essential (primary) hypertension; F41.9 Anxiety disorder, unspecified; F31.9 Bipolar disorder, unspecified; Z98.51 Tubal ligation status

== ENCOUNTER 2024-11-04 08:56 | Observation (INO) | payer OTHER ==
[~2024-11-04] VITALS: Ht 165.1 cm; Wt 93.5 kg
[~2024-11-04 08:56] MED LIST changes: +SEPTDS PO
[2024-11-04 09:05] VITALS: BP 132/61
[2024-11-04 09:40] LABS: BASO % 0.7 % (0.0-1.0); EOS # 0.4 10*3/uL (0.0-0.4); HEMATOCRIT 35.5 % (37.0-47.0); MEAN CELL VOLUME 96.5 fl (81.0-99.0); MEAN CORPUSCULAR HGB 30.4 pg (27.0-31.0); MEAN CORPUSCULAR HGB CONC 31.5 g/dl (33.0-37.0); MEAN PLATELET VOLUME 9.5 fl (9.6-12.3); MONO # 0.4 10*3/uL (0.1-1.0); MONO % 7.8 % (3.0-9.0); NEUT # 2.7 10*3/uL (2.3-7.9); NEUT % 49.8 % (47.0-73.0); PLATELET COUNT AUTOMATED 349 10*3/uL (130-400); RED BLOOD COUNT 3.68 10*6/uL (4.10-5.10); RED CELL DISTRI WIDTH 13.4 % (0-14.5); WHITE BLOOD COUNT 5.4 10*3/uL (4.8-10.8)
[2024-11-04 09:51] LABS: ACT PARTIAL THROMBO TIME 26.4 SECONDS (20.0-32.1)
[2024-11-04 10:01] LABS: POTASSIUM 5.7 mmol/L (3.4-5.1)
[2024-11-04] MEDS ORDERED: SODIUM CHLORIDE 0.9% 1,000 ML IV ONE (10:20)
[2024-11-04] MEDS ORDERED: DEXTROSE 50% 25 GM/50 ML SYR IV ONE (10:20)
[2024-11-04] MEDS ORDERED: Albuterol Sulfate 2.5 MG/3 ML VIAL NEB ONE (10:20)
[2024-11-04] MEDS ORDERED: INSULIN REGULAR, HUMAN 1 UNIT/0.01 ML IV ONE (10:20)
[2024-11-04 12:14] LABS: BILIRUBIN Negative (Negative); BLOOD Negative (Negative); CLARITY Cloudy (Clear); COLOR Yellow (Yellow); GLUCOSE Trace (Negative); KETONE Negative (Negative); LEUKO ESTERASE Trace (Negative); NITRITE Negative (Negative); PH 7.5 (4.5-8.0); SPECIFIC GRAVITY 1.015 (1.001-1.030); UROBILINOGEN 0.2 E.U./dl (0.0-1.0)
[2024-11-04 12:22] LABS: RBC 0-2 rbc/hpf (0-2)
[2024-11-04] MEDS ORDERED: SODIUM CHLORIDE 0.9% 100 ML BAG IV ONE (14:00)
[2024-11-04] MEDS ORDERED: IOHEXOL 350 MG/ML 100 ML VIAL IV ONE (14:00)
[2024-11-04] MEDS ORDERED: Iodixanol 320 100 ML VIAL IV ONE (14:10)
[2024-11-04 15:05] VITALS: BP 153/72
[2024-11-04] MEDS ORDERED: LOPERAMIDE HCL2 MG PO (15:12)
[2024-11-04] MEDS ORDERED: ATIVAN0.5 MG PO (15:13)
[2024-11-04] MEDS ORDERED: MOUNJARO10 MG/0.1 SQ (15:15)
[2024-11-04] MEDS ORDERED: SEROQUEL50 MG PO (15:16)
[2024-11-04] MEDS ORDERED: PIOGLITAZONE HC15 MG PO (15:16)
[2024-11-04] MEDS ORDERED: TIMOLOL MALEATE10 ML OPH (15:18)
[2024-11-04] MEDS ORDERED: MAGNESIUM SULFATE 100 ML IV ONE (15:45)
[2024-11-04] MEDS ORDERED: SODIUM CHLORIDE 0.9% 1,000 ML IV SCH (17:25)
[2024-11-04] MEDS ORDERED: MAGNESIUM OXIDE 400 MG TAB PO SCH (18:00)
[2024-11-04] MEDS ORDERED: QUEtiapine FUMARATE 50 MG TAB PO SCH (22:00)
[2024-11-04] MEDS ORDERED: CARIPRAZINE HCL 1.5 MG CAPSULE PO SCH (22:00)
[2024-11-05 01:02] VITALS: BP 141/82
[2024-11-05 05:42] VITALS: BP 136/72
[2024-11-05 07:56] VITALS: BP 146/79
[2024-11-05] MEDS ORDERED: cefTRIAXone Sodium 10 ML IV SCH (10:00)
[2024-11-05] MEDS ORDERED: ASPIRIN ENTERIC COATED 81 MG TAB PO SCH ×2 (10:00)
[2024-11-05 14:45] VITALS: BP 133/47
[2024-11-05] MEDS ORDERED: AMITRIPTYLINE25 MG PO (15:54)
[2024-11-05] MEDS ORDERED: DICYCLOMINE HYD20 MG PO (15:56)
[2024-11-05] MEDS ORDERED: GABAPENTIN100 M2 PO (15:57)
[2024-11-05 16:00] VITALS: BP 146/79
[2024-11-05] MEDS ORDERED: Loperamide Hydrochloride 2 MG CAP PO SCH (18:00)
[2024-11-05] MEDS ORDERED: Ondansetron Hydrochloride 4 MG/2 ML VIAL IV PRN (18:25)
[2024-11-05 20:00] VITALS: BP 137/73
[2024-11-06] VITALS: BP 121/48
[2024-11-06 06:33] LABS: POTASSIUM 5.7 mmol/L (3.4-5.1)
[2024-11-06 08:00] VITALS: BP 114/50
[2024-11-06] MEDS ORDERED: SODIUM CHLORIDE 0.9% 1,000 ML IV SCH (08:05)
[2024-11-06] MEDS ORDERED: SODIUM POLYSTYRENE SULFONATE 15 GM/60 ML BOT PO ONE (08:05)
[2024-11-06] MEDS ORDERED: DEXTROSE 10 % IN WATER 250 ML IV PRN (08:45)
[2024-11-06] MEDS ORDERED: SODIUM BICARBONATE 650 MG TAB PO SCH (10:00)
[2024-11-06 10:52] LABS: BASO % 0.5 % (0.0-1.0); EOS # 0.5 10*3/uL (0.0-0.4); EOS % 5.8 % (1.0-4.0); HEMATOCRIT 35.5 % (37.0-47.0); MEAN CELL VOLUME 99.4 fl (81.0-99.0); MEAN CORPUSCULAR HGB 31.1 pg (27.0-31.0); MEAN CORPUSCULAR HGB CONC 31.3 g/dl (33.0-37.0); MEAN PLATELET VOLUME 9.3 fl (9.6-12.3); MONO # 0.7 10*3/uL (0.1-1.0); MONO % 8.3 % (3.0-9.0); NEUT % 60.3 % (47.0-73.0); PLATELET COUNT AUTOMATED 355 10*3/uL (130-400); RED BLOOD COUNT 3.57 10*6/uL (4.10-5.10); RED CELL DISTRI WIDTH 13.6 % (0-14.5); WHITE BLOOD COUNT 8.3 10*3/uL (4.8-10.8)
[2024-11-06] MEDS ORDERED: INSULIN REGULAR, HUMAN 1 UNIT/0.01 ML SC SCH (11:30)
[2024-11-06 12:00] VITALS: BP 151/72
[2024-11-06] MEDS ORDERED: Loperamide Hydrochloride 2 MG CAP PO PRN (14:46)
[2024-11-06 16:00] VITALS: BP 148/60
[2024-11-06 20:00] VITALS: BP 161/75
[2024-11-06] MEDS ORDERED: Melatonin 5 MG TABLET PO ONE (22:00)
[2024-11-07] VITALS: BP 125/45
[2024-11-07 08:00] VITALS: BP 152/62
[2024-11-07 08:12] LABS: BASO % 0.5 % (0.0-1.0); EOS # 0.6 10*3/uL (0.0-0.4); EOS % 6.3 % (1.0-4.0); HEMATOCRIT 36.6 % (37.0-47.0); MEAN CELL VOLUME 99.7 fl (81.0-99.0); MEAN CORPUSCULAR HGB 31.3 pg (27.0-31.0); MEAN CORPUSCULAR HGB CONC 31.4 g/dl (33.0-37.0); MEAN PLATELET VOLUME 9.5 fl (9.6-12.3); MONO # 0.5 10*3/uL (0.1-1.0); MONO % 6.1 % (3.0-9.0); NEUT # 5.4 10*3/uL (2.3-7.9); NEUT % 61.2 % (47.0-73.0); PLATELET COUNT AUTOMATED 372 10*3/uL (130-400); RED BLOOD COUNT 3.67 10*6/uL (4.10-5.10); RED CELL DISTRI WIDTH 13.3 % (0-14.5); WHITE BLOOD COUNT 8.7 10*3/uL (4.8-10.8)
[2024-11-07 08:30] LABS: BUN 19 mg/dl (9-23); CHLORIDE 110 mmol/L (98-107); POTASSIUM 5.1 mmol/L (3.4-5.1)
[2024-11-07] MEDS ORDERED: MAGNESIUM OXID400 MG PO (08:50)
[2024-11-07] MEDS ORDERED: CEFUROXIME AXE250 MG PO (08:50)
== END 2024-11-07 11:37 ==
LOC: ED 08:56 → EDHOLD 15:48 → 4E 11-05 14:34
PROVIDERS: Internal Medicine; ADMIT Internal Medicine; ATTEND Internal Medicine
DX: G45.9 Transient cerebral ischemic attack, unspecified (principal); N17.9 Acute kidney failure, unspecified; E87.5 Hyperkalemia; E83.42 Hypomagnesemia; D64.9 Anemia, unspecified; Z79.899 Other long term (current) drug therapy